=== PATIENT | female | born 1970 | race Caucasian/White ===

== ENCOUNTER 2018-02-25 10:03 | Emergency (ER) | payer MEDICAID ==
[~2018-02-25] VITALS: Ht 154.9 cm; Wt 65.5 kg
[~2018-02-25 10:03] MED LIST: CIPR500T4 PO; IBUP-974 PO; PHEN-1749 PO; TRAM50TA1 PO
[2018-02-25 10:13] VITALS: BP 143/63
[2018-02-25 11:07] VITALS: BP 143/63
== END 2018-02-25 11:07 | disposition home or self-care (01) ==
LOC: MED 10:03
DX: J04.0 Acute laryngitis (principal); R03.0 Elevated blood-pressure reading, without diagnosis of hypertension; Z79.1 Long term (current) use of non-steroidal anti-inflammatories (NSAID); Z79.2 Long term (current) use of antibiotics
CPT/HCPCS: 99283

== ENCOUNTER 2018-11-02 16:21 | Emergency (ER) | payer MEDICAID, OTHER ==
[~2018-11-02] VITALS: Ht 149.9 cm; Wt 66.7 kg
[2018-11-02 16:27] VITALS: BP 122/77
[2018-11-02] MEDS ORDERED: KETOROLAC 30 MG/ML VIAL IM ONE (17:45)
[2018-11-02 18:10] VITALS: BP 118/74
== END 2018-11-02 18:10 | disposition home or self-care (01) ==
LOC: MED 16:21
DX: S30.0XXA Contusion of lower back and pelvis, initial encounter (principal); N39.0 Urinary tract infection, site not specified; D64.9 Anemia, unspecified; Z90.49 Acquired absence of other specified parts of digestive tract; Z79.899 Other long term (current) drug therapy; W19.XXXA Unspecified fall, initial encounter; Y93.89 Activity, other specified; Y92.89 Other specified places as the place of occurrence of the external cause; Y99.8 Other external cause status
CPT/HCPCS: 72072; 81002; 81025; 96372; 99283; J1885

== ENCOUNTER 2018-11-06 08:47 | Emergency (ER) | payer OTHER ==
[~2018-11-06] VITALS: Ht 152.4 cm; Wt 67.6 kg
[2018-11-06 09:00] VITALS: BP 166/83
--- NOTE | 2018-11-06 09:15 | NUR ---
PT BIB [facility]ILY [facility]BER WITH C/O EPIGASTRIC PAIN RADIATING TO HER BACK AND LOWER ABDOMEN / AND SHARP X 4 DAYS. PT STATES SHE WAS SEEN HERE AT [facility] 11/02/18 FOR THE SAME PAIN AND IT HAS NOT GONE AWAY. PT REPORTS NAUSEA, DENIES VOMITING. STATES TO HAVE CHILLS BUT NO FEVER. NO CHEST PAIN, SOB. PT IS AAOX4, NORMAL BREATHING . URINE SAMPLE COLLECTED. ER MD TO SEE THE PT. HX: DENIES RX: KEFLEX, IBUPROFEN
[2018-11-06] MEDS ORDERED: KETOROLAC 30 MG/ML VIAL IVP ONE (09:55)
[2018-11-06] MEDS ORDERED: ONDANSETRON 4 MG/2 ML VIAL IVP ONE (09:55)
[2018-11-06 10:54] LABS: BASOPHILS # (AUTO) 0.1 K/uL (0.00-0.22); BASOPHILS % (AUTO) 2.4 % (0.0-2.0); EOSINOPHILS # (AUTO) 0.1 K/uL (0-0.4); EOSINOPHILS % (AUTO) 2.5 % (0.0-4.0); HEMATOCRIT 29.6 % (36-48); HEMOGLOBIN 8.7 g/dL (12.0-16.0); LYMPHOCYTES # (AUTO) 2.4 K/uL (2.5-16.5); LYMPHOCYTES % (AUTO) 43.3 % (20.5-51.1); MEAN CORPUSCULAR HEMOGLOBIN 17 pg (27-31); MEAN CORPUSCULAR HGB CONC 29 g/dL (33-37); MEAN CORPUSCULAR VOLUME 58.1 fL (80-94); MONOCYTES # (AUTO) 0.4 K/uL (0.8-1.0); MONOCYTES % (AUTO) 7.8 % (1.7-9.3); NEUTROPHILS # (AUTO) 2.5 K/uL (1.8-7.7); PLATELET COUNT (AUTO) 615 K/uL (140-450); RED BLOOD CELL COUNT(AUTO) 5.09 MIL/uL (4.20-5.40); RED CELL DISTRIBUTION WIDTH 21.3 % (11.6-13.7); WHITE BLOOD COUNT (AUTO) 5.6 K/uL (4.8-10.8)
--- NOTE | 2018-11-06 11:04 | NUR ---
PT BEING TAKEN TO CT.
[2018-11-06 11:06] LABS: ANION GAP 16.5 (8-16); CARBON DIOXIDE 21.8 mmol/L (21-32); CREATININE 0.7 mg/dL (0.6-1.3); POTASSIUM 3.3 mmol/L (3.5-5.1)
[2018-11-06 11:07] LABS: APPEARANCE,URINE CLEAR (CLEAR); BILIRUBIN,URINE NEGATIVE (NEGATIVE); BLOOD, URINE NEGATIVE (NEGATIVE); COLOR,URINE YELLOW (YELLOW); LEUKOCYTE ESTERASE ,URINE NEGATIVE (NEGATIVE); NITRITE, URINE NEGATIVE (NEGATIVE); UGLUCOSE NEGATIVE (NEGATIVE)
[2018-11-06 11:12] LABS: ALBUMIN 4.1 g/dL (3.4-5.0); TOTAL BILIRUBIN 0.4 mg/dL (0.0-1.0)
[2018-11-06] MEDS ORDERED: MORPHINE SULFATE 2 MG/ML SYR IVP ONE (11:45)
--- NOTE | 2018-11-06 12:45 | NUR ---
Patient discharged with v/s stable. Written and verbal after care instructions given and explained. Patient alert, oriented and verbalized understanding of instructions. Ambulatory with steady gait. All questions addressed prior to discharge. ID band removed. Patient advised to follow up with PMD. Rx of ZOFRAN, TRAMADOL, MOTRIN given. Patient educated on indication of medication including possible reaction and side effects. Opportunity to ask questions provided and answered.
[2018-11-06 12:48] VITALS: BP 145/78
== END 2018-11-06 12:45 | disposition home or self-care (01) ==
LOC: MED 08:47
DX: S33.5XXA Sprain of ligaments of lumbar spine, initial encounter (principal); D25.9 Leiomyoma of uterus, unspecified; D64.9 Anemia, unspecified; Z79.899 Other long term (current) drug therapy; W17.89XA Other fall from one level to another, initial encounter; Y93.89 Activity, other specified; Y92.89 Other specified places as the place of occurrence of the external cause; Y99.8 Other external cause status
CPT/HCPCS: 36415; 72131; 74176; 80053; 81003; 81025; 85025; 96374; 96375; 99284; J1885; J2270; J2405; 81002

== ENCOUNTER 2018-11-18 17:09 | Observation (INO) | payer OTHER ==
[~2018-11-18] VITALS: Ht 142.2 cm; Wt 66.7 kg
[2018-11-18 17:11] VITALS: BP 150/66
--- NOTE | 2018-11-18 17:22 | NUR ---
WAIT IN LOBBY.VSS
--- NOTE | 2018-11-18 17:25 | NUR ---
PT AMB TO BED 8
--- NOTE | 2018-11-18 17:55 | NUR ---
C/O PAINFUL URINATION 10/07 & INTERMITENT MID BACK PAIN RADIATING TO LOWER ABDOMEN X 2 WEEKS. DENIES ANY OTHER SYMPTOMS. VSS. AA0X4. BED IS DOWN, LOCKED, EBD RAIL X 1, ERMD TO SEE PT. MEWD HX: GALL BLADDER REMOVAL
[2018-11-18] MEDS ORDERED: KETOROLAC 15 MG/ML VIAL IVP ONE (18:40)
[2018-11-18] MEDS ORDERED: ONDANSETRON 4 MG/2 ML VIAL IVP ONE (18:40)
[2018-11-18] MEDS ORDERED: NACL 0.9% 1,000 ML IV ONE (18:50)
--- NOTE | 2018-11-18 18:51 | NUR ---
LAB AT BEDSIDE
[2018-11-18 18:58] LABS: APPEARANCE,URINE CLEAR (CLEAR); BILIRUBIN,URINE NEGATIVE (NEGATIVE); BLOOD, URINE NEGATIVE (NEGATIVE); COLOR,URINE YELLOW (YELLOW); LEUKOCYTE ESTERASE ,URINE NEGATIVE (NEGATIVE); NITRITE, URINE NEGATIVE (NEGATIVE); UGLUCOSE NEGATIVE (NEGATIVE)
--- NOTE | 2018-11-18 19:10 | NUR ---
TRANSFER OF CARE AND REPORT GIVEN BY EDIN SANCHEZ
[2018-11-18 19:15] LABS: BASOPHILS # (AUTO) 0.1 K/uL (0.00-0.22); BASOPHILS % (AUTO) 1.8 % (0.0-2.0); EOSINOPHILS # (AUTO) 0.2 K/uL (0-0.4); HEMATOCRIT 22.7 % (36-48); LYMPHOCYTES # (AUTO) 2.1 K/uL (2.5-16.5); LYMPHOCYTES % (AUTO) 33.2 % (20.5-51.1); MEAN CORPUSCULAR HEMOGLOBIN 17 pg (27-31); MEAN CORPUSCULAR HGB CONC 29 g/dL (33-37); MEAN CORPUSCULAR VOLUME 58.5 fL (80-94); MONOCYTES # (AUTO) 0.5 K/uL (0.8-1.0); MONOCYTES % (AUTO) 7.9 % (1.7-9.3); NEUTROPHILS # (AUTO) 3.3 K/uL (1.8-7.7); NEUTROPHILS % (AUTO) 53.1 % (42.2-75.2); PLATELET COUNT (AUTO) 468 K/uL (140-450); RED BLOOD CELL COUNT(AUTO) 3.87 MIL/uL (4.20-5.40); RED CELL DISTRIBUTION WIDTH 22.2 % (11.6-13.7); WHITE BLOOD COUNT (AUTO) 6.2 K/uL (4.8-10.8)
[2018-11-18 19:26] LABS: ANION GAP 11.4 (8-16); CREATININE 0.6 mg/dL (0.6-1.3); HEMOGLOBIN 6.6 g/dL (12.0-16.0); POTASSIUM 3.4 mmol/L (3.5-5.1)
[2018-11-18 19:32] LABS: ALBUMIN 3.5 g/dL (3.4-5.0); TOTAL BILIRUBIN 0.3 mg/dL (0.0-1.0)
--- NOTE | 2018-11-18 19:40 | NUR ---
Robbie barrett in [facility] - 11/18/18 at 2048 by LASHA TRICIA PERFORMED PELVIC EXAM. TOLERATED PROCEDURE WELL.
[2018-11-18 19:46] LABS: PROTHROMBIN TIME 9.6 secs (10.8-13.4)
[2018-11-18] MEDS ORDERED: CEPH250C16 PO (19:50)
--- NOTE | 2018-11-18 20:00 | NUR ---
PA PERFORMED PELVIC EXAM. TOLERATED PROCEDURE WELL.
[2018-11-18] MEDS ORDERED: ONDANSETRON 4 MG/2 ML VIAL IVP PRN (20:20)
--- NOTE | 2018-11-18 20:47 | NUR ---
PT AMBULATING TO RESTROOM
[2018-11-18 20:55] VITALS: BP 123/55
--- NOTE | 2018-11-18 20:55 | NUR ---
PT RECEIVED FROM ED NURSE AT BEDSIDE. PT IN STABLE CONDITION. AAOX4. INTRODUCED SELF TO PT. BOARD UPDATED. PT HAS COMPLAINTS OF PAIN. WILL MEDICATE. NO SOB. AFEBRILE. PT IS AMBULATORY. IV SITE L AC 20G RUNNING NS@100ML/HR PATENT AND INTACT. SKIN WARM, DRY, AND INTACT WITH NO OPEN WOUNDS. BED LOCKED IN LOW POSITION. CALL SALEH WITHIN REACH. SAFETY PRECAUTION IN PLACE. ALL NEEDS MET AT THIS TIME. Addendum: 11/19/18 at 0142 by Kapil Metcalf RN IVF NS STARTED IN THE ED@1921 1000ML@100ML/HR.
--- NOTE | 2018-11-18 20:58 | NUR ---
Patient will be admitted to care of DR KAY. Admited to TELE. Will go to room 120B. Belongings list completed. Report to EDIN MALLORY.
--- NOTE | 2018-11-18 20:58 | NUR ---
rreport given AND Transfer of care GIVEN TO EDIN MALLORY
[2018-11-18] MEDS: MORPHINE SULFATE 2 MG/ML SYR IVP PRN (21:22)
--- NOTE | 2018-11-18 21:22 | NUR ---
MORPHINE GIVEN FOR 6/10 PAIN. PT TOLERATED WELL.
--- NOTE | 2018-11-18 22:40 | NUR ---
PT LAYING IN BED WITH SPOUSE AT BEDSIDE. NO S/S OF DISTRESS NOTED. WILL CONTINUE TO MONITOR.
[2018-11-19] VITALS: BP 120/67
--- NOTE | 2018-11-19 00:30 | NUR ---
PT SLEEPING COMFORTABLY BUT AROUSABLE. NO S/S OF DISTRESS NOTED. NO COMPLAINTS OF PAIN. NO SOB. AFEBRILE. WILL CONTINUE TO MONITOR.
--- NOTE | 2018-11-19 01:40 | NUR ---
PT SLEEPING IN BED BUT AROUSABLE. NO S/S OF DISTRESS NOTED. NO COMPLAINTS OF PAIN. NO SOB. AFEBRILE. WILL CONTINUE TO MONITOR.
[2018-11-19] MEDS: MORPHINE SULFATE 2 MG/ML SYR IVP PRN ×3 (02:13→14:09)
--- NOTE | 2018-11-19 02:13 | NUR ---
MORPHINE GIVEN FOR 6/10 BACK PAIN. PT TOLERATED WELL.
[2018-11-19 04:00] VITALS: BP 137/68
--- NOTE | 2018-11-19 04:00 | NUR ---
PT SLEEPING COMFORTABLY IN BED BUT AROUSABLE. NO S/S OF DISTRESS NOTED. RESPIRATIONS EVEN, UNLABORED, AND WNL. WILL CONTINUE TO MONITOR.
--- NOTE | 2018-11-19 06:10 | NUR ---
PT SLEEPING COMFORTABLY BUT AROUSABLE. NO S/S OF DISTRESS NOTED. NO COMPLAINTS OF PAIN. NO SOB. AFEBRILE. WILL CONTINUE TO MONITOR.
--- NOTE | 2018-11-19 06:50 | NUR ---
BLOOD STARTED. Addendum: 11/19/18 at 0719 by Kapil Metcalf RN PT IN STABLE CONDITION.
--- NOTE | 2018-11-19 07:15 | NUR ---
Pt received from night nurse EDIN Dick. Pt laying in bed AAOx4. No signs of acute distress. 20 G IV to L AC running PRBCs at 100 ml/hr. IV site patents and asymptomatic. Will continue to assess pt for changes in condition.
[2018-11-19 08:00] VITALS: BP 139/68
--- NOTE | 2018-11-19 08:07 | NUR ---
PATIENT HAS BEEN SCREENED AND CATEGORIZED MODERATE NUTRITION RISK. PATIENT WILL BE SEEN WITHIN 3-5 DAYS OF ADMISSION. 11/21/18KRISTINA FORD RD
--- NOTE | 2018-11-19 10:30 | NUR ---
Left IV site was hot and painful to touch. Saline flush unsuccessful. IV 18 g removed, catheter intact. New IV to R forearm started 18 g, one attempt.
--- NOTE | 2018-11-19 11:00 | NUR ---
One unit PRBCs initiated at 50ml/hr. Pt shows no signs of distress at this time. Pre-infusion vitals trending with previous vitals. Unit of blood verified with EDIN Bush. Will stat with pt for 15 minutes to monitor for transfusion reaction.
--- NOTE | 2018-11-19 11:18 | NUR ---
Dr. Garcia paged in regard to pt complaining of dizziness with current and previous transfusion. Will wait for MD to call back.
--- NOTE | 2018-11-19 11:25 | NUR ---
Dr. Garcia returned page regarding pt headache and dizziness. Phone order of one time Benadryl 12.5 mg PO and one time Tylenol 650 mg PO received. Order read back for accuracy.
[2018-11-19] MEDS ORDERED: diphenhydrAMINE 50 MG/ML VIAL IVP SCH (11:45)
[2018-11-19] MEDS ORDERED: ACETAMINOPHEN 325 MG TAB PO SCH (11:45)
[2018-11-19 12:06] VITALS: BP 142/79
--- NOTE | 2018-11-19 13:30 | NUR ---
Pt in bed. Family at bedside. PRBCs transfusing, no signs of acute distress at this time. Will continue to monitor for changes in condition.
--- NOTE | 2018-11-19 14:20 | NUR ---
Second unit of PRBCs completed at 1405. No signs of transfusion reaction. Post transfusion vitals trending with previous vitals. Will continue to assess for changes in condition.
[2018-11-19 16:00] VITALS: BP 125/71
--- NOTE | 2018-11-19 16:10 | NUR ---
PT RECEIVED DISCHARGE INSTRUCTIONS WITH DISCHARGE PACKET. PT VERBALIZED UNDERSTANDING AND KNOWS SHE WILL FOLLOW UP WITH PCP NEXT WEEK. PT RECEIVED INSTRUCTIONS TO RETURN TO ED IN THE EVENT SHE HAS BLEEDING, UNRELIEVED PAIN, DIZZINESS, SOB. AN 18 G IV REMOVED FORM R FOREARM, CATHETER INTACT. PT OPTED NOT TO BE WHEELED OFF UNIT. PT WALKED OFF UNIT WITH PARTNER. ALL BELONGINGS WITH PATIENT.
[2018-11-19 16:18] LABS: BASOPHILS # (AUTO) 0.1 K/uL (0.00-0.22); HEMATOCRIT 29.7 % (36-48); HEMOGLOBIN 9.2 g/dL (12.0-16.0); MONOCYTES # (AUTO) 0.5 K/uL (0.8-1.0); NEUTROPHILS # (AUTO) 3.4 K/uL (1.8-7.7)
[2018-11-19 16:25] LABS: BASOPHILS % (AUTO) 1.6 % (0.0-2.0); EOSINOPHILS # (AUTO) 0.3 K/uL (0-0.4); EOSINOPHILS % (AUTO) 4.4 % (0.0-4.0); LYMPHOCYTES # (AUTO) 1.6 K/uL (2.5-16.5); LYMPHOCYTES % (AUTO) 27.9 % (20.5-51.1); MEAN CORPUSCULAR HEMOGLOBIN 20 pg (27-31); MEAN CORPUSCULAR HGB CONC 31 g/dL (33-37); MEAN CORPUSCULAR VOLUME 63.9 fL (80-94); MONOCYTES % (AUTO) 7.9 % (1.7-9.3); NEUTROPHILS % (AUTO) 58.2 % (42.2-75.2); PLATELET COUNT (AUTO) 424 K/uL (140-450); RED BLOOD CELL COUNT(AUTO) 4.65 MIL/uL (4.20-5.40); RED CELL DISTRIBUTION WIDTH 26.9 % (11.6-13.7); WHITE BLOOD COUNT (AUTO) 5.8 K/uL (4.8-10.8)
[2018-11-19 16:30] LABS: ANION GAP 11.8 (8-16); CARBON DIOXIDE 24.8 mmol/L (21-32); CREATININE 0.6 mg/dL (0.6-1.3); POTASSIUM 3.6 mmol/L (3.5-5.1)
[2018-11-19 17:21] VITALS: BP 124/66
== END 2018-11-19 18:10 | disposition home or self-care (01) ==
LOC: MED 17:09 → INTOOBSV 20:22 → MTU 20:22
PROVIDERS: ADMIT Internal Medicine; ATTEND Internal Medicine
DX: N92.0 Excessive and frequent menstruation with regular cycle (principal); D62 Acute posthemorrhagic anemia; E87.6 Hypokalemia; N30.10 Interstitial cystitis (chronic) without hematuria
CPT/HCPCS: 36415; 80048; 80053; 81003; 83690; 84703; 85025; 85610; 86886; 86900; 86901; 86920; 87081; 87086; 87210; 96374; 96375; 96376; 99285; G0378; J1885; J2270; J2405; J7030; P9016; Q0163; 96372

== ENCOUNTER 2018-11-19 22:15 | Inpatient (IN) | payer OTHER ==
[~2018-11-19] VITALS: Ht 162.6 cm; Wt 70.8 kg
[~2018-11-19 22:15] MED LIST changes: +CEPH250C16 PO; -CIPR500T4 PO; -TRAM50TA1 PO
[2018-11-19 22:30] VITALS: BP 132/87
--- NOTE | 2018-11-19 22:32 | NUR ---
SHIRA PLATA. OKAY TO WAIT IN LOBBY FOR MAIN ED BED. VSS.
--- NOTE | 2018-11-20 01:20 | NUR ---
PT AMBULATORY TO BED 08, WITH
[2018-11-20] MEDS ORDERED: KETOROLAC 60 MG/2 ML VIAL IM ONE (01:25)
--- NOTE | 2018-11-20 01:25 | NUR ---
47 Y FEMALE, BIB C/O LOW BACK PAIN RADIATING TO BILATERAL GROIN 12/08. PT WAS ADMITTED TO [facility] ON 11/18/18 FOR ANEMIA, CYSTITIS VS CHRONIC UTI AND WAS DISCHARGE 11/19/18. CAME BACK TO ED DUE TO SEVERE PAIN. +N/DIARRHEA, -VOMITING, -FEVER/CHILLS, PT AAOX4, GCS 15, RR EVEN UNLABORED, ED MD DR. PRINCE MADE AWARE, WILL CONTINUE TO MONITOR CLOSELY, BED LOCKED IN LOWEST POSITION, BED SIDERAIL UPX1.
--- NOTE | 2018-11-20 01:27 | NUR ---
RECEIVED REPORT FROM EDIN ESPINOZA. TRANSFER OF CARE AT THIS TIME.
--- NOTE | 2018-11-20 01:48 | NUR ---
DR. PRINCE EVALUATING AT BEDSIDE.
[2018-11-20] MEDS ORDERED: ONDANSETRON 4 MG ODT PO ONE (01:50)
[2018-11-20] MEDS ORDERED: MORPHINE SULFATE 4 MG/ML SYR IM ONE (01:50)
--- NOTE | 2018-11-20 02:00 | NUR ---
MEDICATIONS ADMINISTERED ORDERED. RISKS/BENEFITS REVIEWED WITH PT. WILL CONTINUE TO MONITOR.
[2018-11-20] MEDS ORDERED: MORPHINE SULFATE 4 MG/ML SYR IVP ONE (02:30)
--- NOTE | 2018-11-20 02:30 | NUR ---
PT STATES PAIN IS UNCHANGED; /10. DENIES NAUSEA. DR. PRINCE MADE AWARE.
[2018-11-20 02:52] LABS: BASOPHILS # (AUTO) 0.1 K/uL (0.00-0.22); EOSINOPHILS # (AUTO) 0.3 K/uL (0-0.4); LYMPHOCYTES # (AUTO) 1.7 K/uL (2.5-16.5)
[2018-11-20 03:11] LABS: BASOPHILS % (AUTO) 0.8 % (0.0-2.0); EOSINOPHILS % (AUTO) 2.8 % (0.0-4.0); HEMATOCRIT 31.1 % (36-48); HEMOGLOBIN 9.6 g/dL (12.0-16.0); LYMPHOCYTES % (AUTO) 16.4 % (20.5-51.1); MEAN CORPUSCULAR HEMOGLOBIN 20 pg (27-31); MEAN CORPUSCULAR HGB CONC 31 g/dL (33-37); MONOCYTES # (AUTO) 0.8 K/uL (0.8-1.0); MONOCYTES % (AUTO) 7.7 % (1.7-9.3); NEUTROPHILS # (AUTO) 7.4 K/uL (1.8-7.7); NEUTROPHILS % (AUTO) 72.3 % (42.2-75.2); PLATELET COUNT (AUTO) 461 K/uL (140-450); RED BLOOD CELL COUNT(AUTO) 4.88 MIL/uL (4.20-5.40); WHITE BLOOD COUNT (AUTO) 10.3 K/uL (4.8-10.8)
[2018-11-20 03:14] LABS: ANION GAP 12.4 (8-16); CARBON DIOXIDE 25.3 mmol/L (21-32); POTASSIUM 3.7 mmol/L (3.5-5.1)
[2018-11-20 03:15] LABS: CREATININE 0.7 mg/dL (0.6-1.3)
[2018-11-20 03:19] LABS: ALBUMIN 3.5 g/dL (3.4-5.0); TOTAL BILIRUBIN 0.5 mg/dL (0.0-1.0)
[2018-11-20 03:21] LABS: MEAN CORPUSCULAR VOLUME 63.7 fL (80-94); RED CELL DISTRIBUTION WIDTH 27.1 % (11.6-13.7)
--- NOTE | 2018-11-20 04:39 | NUR ---
Patient will be admitted to care of DR. JUSTUS Oglesby. Admited to MS. Will go to swte562 B Belongings list completed. Report to MOHAMUD JESUS.
[2018-11-20 04:55] VITALS: BP 155/76
--- NOTE | 2018-11-20 04:55 | NUR ---
REPORT RECEIVED FROM ED NURSE AT BEDSIDE. PT IN STABLE CONDITION. AAOX4. INTRODUCED SELF TO PT. BOARD UPDATED. NO COMPLAINTS OF PAIN. NO SOB. AFEBRILE. IV SITE R HAND 22G SL PATENT AND INTACT. SKIN WARM, DRY, AND INTACT WITH NO OPEN WOUNDS. BED LOCKED IN LOW POSITION. CALL SALEH WITHIN REACH. SAFETY PRECAUTION IN PLACE. ALL NEEDS MET AT THIS TIME.
--- NOTE | 2018-11-20 06:11 | NUR ---
PT WATCHING TV WITH SPOUSE AT BEDSIDE. NO S/S OF DISTRESS NOTED. NO COMPLAINTS OF PAIN. NO SOB. AFEBRILE. WILL CONTINUE TO MONITOR.
--- NOTE | 2018-11-20 06:30 | NUR ---
ATTEMPTED TO CALL MD TWICE. NO CALL BACK.
--- NOTE | 2018-11-20 07:22 | NUR ---
REPORT RECEIVED FROM ROAD HOGGER OPERATOR, PT SLEEPING QUIETLY, RESP EVEN UNLABORED, PT APPEARS IN NO PAIN OR DISCOMFORT, POC REVIEWED, NO IMMEDIATE NEEDS AT THIS TIME, WILL CONTINUE TO MONITOR
[2018-11-20] MEDS ORDERED: ONDANSETRON 4 MG/2 ML VIAL IVP PRN (07:30)
[2018-11-20 08:00] VITALS: BP 140/63
[2018-11-20] MEDS: HYDROcodone/APAP 5/325 MG 1 TAB TAB PO PRN ×2 (08:04→22:53)
--- NOTE | 2018-11-20 08:13 | NUR ---
DR KAY AT BEDSIDE
--- NOTE | 2018-11-20 08:14 | NUR ---
PAIN MED GIVEN FOR ABD PAIN 11/07, ZOFRAN FOR N/V, PT TAKEN TO RADIOLOGY FOR CT
--- NOTE | 2018-11-20 08:18 | NUR ---
PATIENT HAS BEEN SCREENED AND CATEGORIZED LOW NUTRITION RISK. PATIENT WILL BE SEEN WITHIN 7 DAYS OF ADMISSION. 11/26/[address]
[2018-11-20] MEDS: MORPHINE SULFATE 2 MG/ML SYR IVP PRN ×3 (11:06→18:57)
--- NOTE | 2018-11-20 13:49 | NUR ---
CONTACTED PATIENT'S PCP ALEXANDRA GUZMAN-GUNNAR OFFICE AT [phone] FOR POST DISCHARGE APPOINTMENT, ABLE TO SPEAK TO TRACY. SHE PROVIDED ME WITH Oct AT 1045 AM. COPY OF APPOINTMENT PROVIDED TO THE PATIENT. INSTRUCTED TO BRING DC PACKET WITH HER TO THE APPOINTMENT.
--- NOTE | 2018-11-20 15:20 | NUR ---
PT C/O ABD PAIN AGAIN, PRN MORPHINE GIVEN, AWAITING BEAD FILLER CONSULT, AT BEDSIDE, WILL CONTINUE TO MONITOR.
[2018-11-20 16:00] VITALS: BP 120/62
--- NOTE | 2018-11-20 17:02 | NUR ---
DR ODONNELL AT BEDSIDE FOR VAG EXAM
--- NOTE | 2018-11-20 18:20 | NUR ---
PT SITTING UP IN BED EATING DINNER, PT SUMI WELL, FAMILY AT BEDSIDE.
--- NOTE | 2018-11-20 19:20 | NUR ---
RECEIVED BEDSIDE REPORT FROM DAY SHIFT NURSE. PATIENT IS AWAKE, ALERT, AND COOPERATIVE. RESPIRATION EVEN UNLABORED ON ROOM AIR. NO DISTRESS NOTED. SKIN IS WARM AND DRY. IV PATENT AND INTACT. SALINE LOCKED. PLAN OF CARE WAS DISCUSSED. ALL SAFETY MEASURES IN PLACE. FAMILY AT BEDSIDE. BED IS AT LOW POSITION. CALL LIGHT WITHIN REACH AND VERBALIZES ITS USE. WILL CONTINUE TO MONITOR.
--- NOTE | 2018-11-20 19:30 | NUR ---
REPORT GIVEN TO REGIONAL BRANCH MANAGER RN.
--- NOTE | 2018-11-20 20:00 | NUR ---
INITIAL ASSESSMENT DONE. VITALS WERE TAKEN. PATIENT IN STABLE CONDITION. FAMILY AT BEDSIDE. CALL LIGHT WITHIN REACH. WILL CONTINUE TO MONITOR.
--- NOTE | 2018-11-20 21:00 | NUR ---
CHECKED PATIENT. PATIENT IN BED WATCHING TV RESPIRATION EVEN UNLABORED ON ROOM AIR. NO DISTRESS NOTED. AT BEDSIDE. TOLD THE PATIENT AND THAT VISITING HOURS IS OVER FOR TONIGHT. VERBALIZE UNDERSTANDING. WILL CONTINUE TO MONITOR.
--- NOTE | 2018-11-20 22:53 | NUR ---
GAVE NORCO 5/325 FOR PATIENT'S PAIN LEVEL OF 7/10. PATIENT TOLERATED MEDICATION WELL. WILL REASSESS IN ONE HOUR.
[2018-11-21] VITALS: BP 99/55
--- NOTE | 2018-11-21 | NUR ---
VITALS WERE TAKEN. PATIENT IN STABLE CONDITION. COMPLAINED OF PAIN BUT ALREADY MEDICATED. CALL LIGHT WITHIN REACH. WILL CONTINUE TO MONITOR.
--- NOTE | 2018-11-21 02:00 | NUR ---
CHECKED PATIENT. PATIENT SLEEPING RESPIRATION EVEN UNLABORED ON ROOM AIR. NO DISTRESS NOTED. CALL LIGHT WITHIN REACH. WILL CONTINUE TO MONITOR.
--- NOTE | 2018-11-21 04:00 | NUR ---
CHECKED PATIENT. PATIENT SLEEPING RESPIRATION EVEN UNLABORED ON ROOM AIR. NO DISTRESS NOTED. CALL LIGHT WITHIN REACH. WILL CONTINUE TO MONITOR.
--- NOTE | 2018-11-21 07:17 | NUR ---
ENDORSED PATIENT TO DAY SHIFT NURSE. PATIENT IN STABLE CONDITION.
--- NOTE | 2018-11-21 07:29 | NUR ---
RECEIVED HAND OFF REPORT FROM DIAL BUFFER NURSE PT IS AWAKE IN BED PT APPEARS STABLE AND IN NO APPARENT DISTRESS. ALL SAFETY MEASURES ARE IN PLACE. IV SITE PATENT AND SHOWS NO SIGNS OF INFLAMMATION OR INFILTRATION ALL SAFETY MEASURES ARE IN PLACE WILL CONTINUE TO MONITOR.
[2018-11-21] MEDS: MORPHINE SULFATE 2 MG/ML SYR IVP PRN (07:32)
[2018-11-21 08:35] VITALS: BP 138/76
--- NOTE | 2018-11-21 09:25 | NUR ---
PT REQUESTING TO TAKE A SHOWER ASSISTED PT TO SHOWER. WRAPPED IV SITE. PT AMBULATED WITH A STEADY GAIT
[2018-11-21] MEDS: HYDROcodone/APAP 5/325 MG 1 TAB TAB PO PRN ×2 (10:53→14:13)
--- NOTE | 2018-11-21 11:25 | NUR ---
FREQUENT ROUNDING ON PT PT APPEARS STABLE AND WILL CONTINUE TO MONITOR
--- NOTE | 2018-11-21 13:45 | NUR ---
FREQUENT ROUNDING ON PT PT APPEARS STABLE AND IN NO APPARENT DISTRESS. WILL CONTINUE TO MONITOR.
[2018-11-21 14:19] VITALS: BP 138/76
--- NOTE | 2018-11-21 15:05 | NUR ---
REVIEWED DISCHARGE INSTRUCTIONS WITH PATIENT AND INFORMED HER TO FOLLOW UP WITH DR. ODONNELL IN 1-2 WEEKS I INCLUDED HIS CARD. INFORMED PT TO CONTINUE HOME MEDICATIONS AND TO VENDING ROUTE DRIVER HER PRESCRIPTIONS AT THERE PREFERRED PHARMACY. ANSWERED ALL QUESTIONS. REMOVED IV IV TIP INTACT. REMOVED ID BAND. PT AMBULATED OFF THE UNIT WITH HER /
== END 2018-11-21 15:20 | disposition home or self-care (01) | DRG 532 ==
LOC: MED 22:15 → MTU 11-20 04:39
PROVIDERS: ADMIT Internal Medicine Pulmonary Disease; ATTEND Internal Medicine Pulmonary Disease
DX: D25.9 Leiomyoma of uterus, unspecified (principal); D50.0 Iron deficiency anemia secondary to blood loss (chronic); N92.0 Excessive and frequent menstruation with regular cycle; G89.29 Other chronic pain; Z90.49 Acquired absence of other specified parts of digestive tract; Z30.432 Encounter for removal of intrauterine contraceptive device
CPT/HCPCS: 36415; 76856; 80053; 85025; 87081; 96372; 96374; 99285; J1885; J2270; J2405; Q0092; Q0162

== ENCOUNTER 2018-12-08 19:09 | Emergency (ER) | payer OTHER ==
[~2018-12-08] VITALS: Ht 142.2 cm; Wt 68.0 kg
[2018-12-08 19:45] VITALS: BP 146/80
--- NOTE | 2018-12-08 19:48 | NUR ---
TO LOBBY A/W BED AMBULATORY
--- NOTE | 2018-12-08 20:47 | NUR ---
PT TO ER BED 7
--- NOTE | 2018-12-08 20:51 | NUR ---
PT TO CT VIA WHEELCHAIR
--- NOTE | 2018-12-08 20:57 | NUR ---
PT RETURN FROM CT
[2018-12-08 21:02] LABS: APPEARANCE,URINE CLEAR (CLEAR); BILIRUBIN,URINE NEGATIVE (NEGATIVE); BLOOD, URINE NEGATIVE (NEGATIVE); COLOR,URINE YELLOW (YELLOW); LEUKOCYTE ESTERASE ,URINE NEGATIVE (NEGATIVE); NITRITE, URINE NEGATIVE (NEGATIVE); PH,URINE 6.5 (5.0-9.0); UGLUCOSE NEGATIVE (NEGATIVE)
--- NOTE | 2018-12-08 21:02 | NUR ---
PT CAME TO ER C/O OF SUPRAPUBIC PAIN X 5 DAYS. PAIN MORE SEVERE ON LEFT SIDE, RADIATES TO LOWER BACK. PAIN LEVEL 10/10 SHARP, CONSTANT PAIN. PT DENIES PAIN UPON URINATION. PT HAS BEEN ALTERNATING IBUPROFEN 800MG AND HYDROCODONE-ACETAMIN 5-325MG 1 TAB Q6 HOURS WITHOUT ANY RELIEF. PT ALSO C/O DIZZINESS AND HEAVY VAGINAL BLEEDING X5 DAYS. NKA. MED HX: ANEMIA AND FIBROSIS. SAFETY MEASURES IN PLACE. WAITING FOR ERMD TO EVALUATE PT.
[2018-12-08] MEDS: KETOROLAC 60 MG/2 ML VIAL IM ONE (21:19)
[2018-12-08 21:21] LABS: BASOPHILS # (AUTO) 0.1 K/uL (0.00-0.22); BASOPHILS % (AUTO) 1.4 % (0.0-2.0); EOSINOPHILS # (AUTO) 0.3 K/uL (0-0.4); EOSINOPHILS % (AUTO) 4.5 % (0.0-4.0); HEMATOCRIT 28.4 % (36-48); HEMOGLOBIN 9.1 g/dL (12.0-16.0); LYMPHOCYTES # (AUTO) 1.9 K/uL (2.5-16.5); LYMPHOCYTES % (AUTO) 28.9 % (20.5-51.1); MEAN CORPUSCULAR HEMOGLOBIN 21 pg (27-31); MEAN CORPUSCULAR HGB CONC 32 g/dL (33-37); MEAN CORPUSCULAR VOLUME 65.5 fL (80-94); MONOCYTES # (AUTO) 0.6 K/uL (0.8-1.0); MONOCYTES % (AUTO) 8.9 % (1.7-9.3); NEUTROPHILS # (AUTO) 3.8 K/uL (1.8-7.7); NEUTROPHILS % (AUTO) 56.3 % (42.2-75.2); PLATELET COUNT (AUTO) 427 K/uL (140-450); RED BLOOD CELL COUNT(AUTO) 4.34 MIL/uL (4.20-5.40); RED CELL DISTRIBUTION WIDTH 30.7 % (11.6-13.7); WHITE BLOOD COUNT (AUTO) 6.7 K/uL (4.8-10.8)
[2018-12-08 21:29] LABS: CARBON DIOXIDE 25.4 mmol/L (21-32); CREATININE 0.7 mg/dL (0.6-1.3); POTASSIUM 3.4 mmol/L (3.5-5.1)
[2018-12-08 21:35] LABS: ALBUMIN 3.5 g/dL (3.4-5.0); TOTAL BILIRUBIN 0.4 mg/dL (0.0-1.0)
--- NOTE | 2018-12-08 22:20 | NUR ---
PT REQUESTING PAIN MEDICATION. PAIN LEVEL 9/10. ERMD MADE AWARE
--- NOTE | 2018-12-08 22:29 | NUR ---
PT AMBULATED TO RESTROOM
[2018-12-08] MEDS: MORPHINE SULFATE 4 MG/ML SYR IM ONE ×2 (22:47→23:31)
--- NOTE | 2018-12-08 23:06 | NUR ---
PT RESTING IN BED COMFORTABLY. FAMILY AT BEDSIDE. VSS. WILL CONTINUE TO MONITOR.
--- NOTE | 2018-12-08 23:19 | NUR ---
ERMD AT BEDSIDE
--- NOTE | 2018-12-08 23:52 | NUR ---
Patient discharged with v/s stable. Written and verbal after care instructions given and explained. Pt encouraged to follow up with OBGYN doctor. Patient alert, oriented and verbalized understanding of instructions. Ambulatory with steady gait. All questions addressed prior to discharge. ID band removed. Patient advised to follow up with PMD. Rx of PROVERA, MECLIZINE HYYDROCCHLORIDE, NORCO WAS given. Patient educated on indication of medication including possible reaction and side effects. Opportunity to ask questions provided and answered.
[2018-12-08 23:53] VITALS: BP 137/79
== END 2018-12-08 23:52 | disposition home or self-care (01) ==
LOC: MED 19:09
DX: N93.8 Other specified abnormal uterine and vaginal bleeding (principal); D25.9 Leiomyoma of uterus, unspecified; R42 Dizziness and giddiness; Z86.2 Personal history of diseases of the blood and blood-forming organs and certain disorders involving the immune mechanism; Z90.49 Acquired absence of other specified parts of digestive tract; Z79.2 Long term (current) use of antibiotics; Z79.1 Long term (current) use of non-steroidal anti-inflammatories (NSAID); Z79.899 Other long term (current) drug therapy
CPT/HCPCS: 36415; 74176; 80053; 81003; 81025; 83690; 85025; 96372; 99284; J1885; J2270

== ENCOUNTER 2022-06-06 16:13 | Emergency (ER) | payer OTHER ==
[~2022-06-06] VITALS: Ht 142.2 cm; Wt 79.4 kg
[~2022-06-06 16:13] MED LIST changes: -PHEN-1749 PO; +PYR100 PO
[2022-06-06 17:07] VITALS: BP 183/78
[2022-06-06] MEDS ORDERED: IBUPROFEN 800 MG TAB PO ONE (18:15)
[2022-06-06 19:18] VITALS: BP 183/78
--- NOTE | 2022-06-06 19:18 | NUR ---
Patient discharged with v/s stable. Written and verbal after care instructions given and explained. Patient verbalized understanding. Ambulatory with steady gait. All questions addressed prior to discharge. Advised to follow up with PMD.
== END 2022-06-06 19:18 | disposition home or self-care (01) ==
LOC: MED 16:13
DX: M17.12 Unilateral primary osteoarthritis, left knee (principal); R03.0 Elevated blood-pressure reading, without diagnosis of hypertension; Z79.899 Other long term (current) drug therapy
CPT/HCPCS: 73562; 81025; 99283